=== PATIENT | female | born 1965 | race Two or more races ===

== ENCOUNTER → 2024-09-04 | Outpatient (CLI) | payer MEDICAID, SELFPAY ==
--- NOTE | 2024-09-04 13:25 | XR_ITS ---
Examination: Bilateral hands, 6 views. Technique: AP, Oblique, Lateral each hand total 6 views Date and time of exam: September 04, 2024 1333 hours INDICATIONS: Bilateral hand pain finger pain 4 months FINDINGS: Severe osteopenia No fracture or dislocation involving either hand Diffuse mild to moderate narrowing joints of the wrist and hand No erosive arthritis No cortical bone destruction No foreign bodies IMPRESSION: Diffuse nonerosive mild to moderate narrowing joints of the wrist and hand, especially distal interphalangeal joints second through fifth digits
== END | disposition home or self-care (01) ==
LOC: CDIM 13:16
PROVIDERS: PCP Physician Assistant; Referring Provider Physician Assistant; Visit Provider Physician Assistant
DX: M25.842 Other specified joint disorders, left hand (principal); M25.841 Other specified joint disorders, right hand
CPT/HCPCS: 73130

== ENCOUNTER → 2025-01-12 | Outpatient (CLI) | payer MEDICAID, SELFPAY ==
--- NOTE | 2025-01-12 10:38 | XR_ITS ---
Examination: Thoracic spine 3 views Technique one AP lateral coned lateral upper dorsal spine 3 views Exam date and time: January 12, 2025 1115 hours INDICATIONS: Upper back pain beginning 6 months ago. FINDINGS: Prominent osteopenia No thoracic fracture Mild to moderate diffuse thoracic disc narrowing IMPRESSION: Mild to moderate diffuse thoracic degenerative disc disease
--- NOTE | 2025-01-12 10:38 | XR_ITS ---
Examination: Lumbar spine 3 views Technique one AP lateral coned lateral lower lumbar spine 3 views Exam date and time: 09/13/2025 1122 hours INDICATIONS: Low back pain beginning 6 months ago. FINDINGS: Moderate osteopenia. No lumbar fracture. Mild disc narrowing L5-S1. No spondylolisthesis IMPRESSION: Mild disc narrowing L5-S1
--- NOTE | 2025-01-12 10:38 | XR_ITS ---
Examination: PA lateral chest 2 views TECHNIQUE: Upright PA lateral chest 2 views Exam date and time: January 12, 2025 1107 hours Comparison May 08, 2022 INDICATIONS: Diagnosis pulmonary fibrosis. FINDINGS: Again noted bibasilar pulmonary fibrosis and/or bronchiectasis Normal heart size Normal heart failure Moderate osteopenia IMPRESSION: Stable bibasilar pulmonary fibrosis/bronchiectasis, consider high resolution CT chest without contrast follow-up
== END | disposition home or self-care (01) ==
LOC: CDIM 09:55
PROVIDERS: PCP Physician Assistant; Referring Provider Physician Assistant; Visit Provider Physician Assistant
DX: J84.10 Pulmonary fibrosis, unspecified (principal); M48.07 Spinal stenosis, lumbosacral region; M51.34 Other intervertebral disc degeneration, thoracic region
CPT/HCPCS: 71046; 72070; 72100

== ENCOUNTER 2025-03-30 11:00 | Outpatient (RCR) | payer MEDICAID, SELFPAY ==
--- NOTE | 2025-03-18 11:45 | PTNOTE_ITS ---
PT OP Initial Eval Patient Information Outpatient Physical Therapy Treatment Date: 03/18/25 Visit Reasons: Bilateral hip pain/back pain Medical Diagnosis: Back Pain; Bilateral Hip Pain Treatment Dx #1: Back Pain Treatment Dx #2: Bilateral Hip Pain Start of Care: 03/18/25 Date of Onset: 1 month ago Smoking Status Smoking Status: Never smoker Initial Assessment Subjective: Pt is a 60 y/o female reports of back and bilateral hip pain (8/10) ~ 1 month ago. Pt mentioned after seeing the chiropractor her symptoms worsening. Pt is currently seeing rhuematologist to screen out certain condition. Pt has limitation with standing, walking, chores, bending, lifting, stairs, and performing recreational activities. Objective: L/S AROM: all motions are 50% towards end range with pain Hip PROM: all motions are 50% towards end range with pain Hip MMTs: grossly 3/5 Muscle Length: Hs tightness Assessment: Pt demonstrate back pain with hip mobility deficits leading to difficulty with ADLs. Pt will attempt physical therapy to increase ROM, strength, and work on overall mobility. 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 1) Increase L/S AROM WNL in 6 wks to be able to perform chores 2) Decrease back and hip pain to 4/10 in 6 wks to be able to stand more than 30 mins 3) Increase core strength WFL in 6 wks to be able to perform recreational activities 4) Increase hip MMTs grossly to 4-/5 in 6 wks to be able to walk more than 30 mins 5) Indep with HEP Treatment Plan 1) Manual Therapy 2) Therapeutic Activities 3) Therapeutic Exercises 4) Modalities (ice, heat) 5) Balance Training 6) Gait Training Frequency and Duration: 2 x wk for 6 wks Certification Dates: 03/18/25 to 06/18/25 Procedure Charges OP PT Eval Mod Complex 30 minutes: Yes
--- NOTE | 2025-03-30 12:55 | PT.ODAYNRPT ---
PT Outpatient Daily Note OP Daily Note Outpatient Physical Therapy Treatment Date: 03/30/25 Visit Reasons: Bilateral hip pain/back pain Subjective: Pt c/o back and hip pain. Objective: Please see flow sheet for there x list. Assessment: Pt demonstrates poor tolerance with interventions assigned due to aggravating symptoms. Plan: Continue with pOC. Length of Time (minutes) of Treatment: 30 Minutes Procedure Charges Therapeutic Exercise 30 minutes: Yes
== END 2025-03-30 23:59 | disposition home or self-care (01) ==
LOC: CPTX 11:00
PROVIDERS: PCP Nurse Practitioner; Referring Provider Nurse Practitioner; Visit Provider Nurse Practitioner
DX: M25.552 Pain in left hip (principal); M25.551 Pain in right hip; M54.9 Dorsalgia, unspecified; R26.2 Difficulty in walking, not elsewhere classified
CPT/HCPCS: 97110; 97162

== ENCOUNTER 2025-04-02 10:47 | Outpatient (RCR) | payer MEDICAID, SELFPAY ==
--- NOTE | 2025-04-02 11:47 | PT.ODAYNRPT ---
PT Outpatient Daily Note OP Daily Note Outpatient Physical Therapy Treatment Date: 04/02/25 Visit Reasons: Bilateral hip/back pain Subjective: Pt c/o back pain today. Objective: Please see flow sheet for ther ex list. Assessment: Pt moves slowly and with decrease arm swing during ambulation. Plan: Continue with pOC. Length of Time (minutes) of Treatment: 30 Minutes Procedure Charges Therapeutic Exercise 30 minutes: Yes
== END 2025-04-30 23:59 | disposition home or self-care (01) ==
LOC: CPTX 10:47
PROVIDERS: PCP Nurse Practitioner; Referring Provider Nurse Practitioner; Visit Provider Nurse Practitioner
DX: M54.50 Low back pain, unspecified (principal); M25.552 Pain in left hip; M25.551 Pain in right hip; R26.2 Difficulty in walking, not elsewhere classified
CPT/HCPCS: 97110

== ENCOUNTER → 2025-04-27 | Outpatient (CLI) | payer OTHER, SELFPAY ==
--- NOTE | 2025-04-27 07:00 | XR_ITS ---
MRI shoulder, left, without contrast. Date and time: April 19, 2025 0714 hours INDICATIONS: Lifting injury at work to the shoulder 4 years ago with persistent shoulder pain Technique: Multiple axial, sagittal and coronal sections of the shoulder have been obtained. Siemens high-resolution 1.5 Larisa MRI scanner is utilized. Axial fat-suppressed sections, TR 2350, TE 18 T2-weighted coronal fat-saturated images, TR 3500, TE 7100 T1-weighted coronal images, TR 500, TE 15 T2-weighted sagittal fat-saturated images, TR 3500, TE 57 T1-weighted sagittal sections, TR 504, TE 13. Findings: Supraspinatus tendon insertion is intact. Infraspinatus tendon insertion is intact. Subscapularis insertion is intact. Subscapularis bursa is not seen. Long head of the biceps is in the bicipital groove. No definite tear of the biceps superior labral anchor is seen. Retraction of the musculotendinous junction of the rotator cuff is not seen . Tendinosis pattern is mild. Distance between the acromium and humeral head is 3.4 mm Atrophy of the supraspinatus muscle is severe. Atrophy of the infraspinatus muscle is moderate. Sagittal sections demonstrate a horizontal acromion. Acromioclavicular joint demonstrates mild osteoarthritis . Osacromiale is not identified. Labral margins intact. Bony glenoid fossa on the sagittal sections does not demonstrate osseous defect. Occult fracture or area of avascular necrosis is not seen. Acromioclavicular joint separation is not visible. Defect in the posterolateral margin of the humeral head is not seen Impression: Rotator cuff and labral margins intact. Rotator cuff impingement syndrome, distance between the acromium and humeral head 3.4 mm
--- NOTE | 2025-04-27 07:30 | XR_ITS ---
Examination: MRI left elbow, without contrast Date and time of exam: April 27, 2025, 0756 hours INDICATIONS: Palpable lump medial elbow with weakness for years Technique: Multiple axial sagittal and coronal images of the left elbow have been obtained with the Siemens high-resolution 1.5 Larisa MRI scanner. Images obtained include T2-weighted fat-suppressed sagittal sections, TR 3500, TE 46, T2 weighted coronal fat suppressed images, TR 3050, TE 84, T2-weighted transverse fat suppressed images, TR 3260, TE 63, proton density transverse images, TR 4720 TE 46, and T1 weighted coronal images, TR 560, TE 13. Findings: Distal humerus proximal radius and ulna intact Small elbow effusion Triceps tendon intact Common flexor, and extensor tendons intact No avascular necrosis No occult fracture No soft tissue cystic or solid mass medial elbow at the area of concern No ossified joint bodies IMPRESSION: No occult fracture, bone contusion, marrow edema or avascular necrosis Collateral ligaments appear intact
== END | disposition home or self-care (01) ==
LOC: SMRI 06:56
PROVIDERS: PCP Physician Assistant
DX: S46.012A Strain of muscle(s) and tendon(s) of the rotator cuff of left shoulder, initial encounter (principal); X58.XXXA Exposure to other specified factors, initial encounter; R22.32 Localized swelling, mass and lump, left upper limb
CPT/HCPCS: 73221

== ENCOUNTER → 2025-04-29 | Outpatient (CLI) | payer OTHER, SELFPAY ==
--- NOTE | 2025-04-29 13:00 | XR_ITS ---
Examination: MRI cervical spine without intravenous contrast Date and time of exam: April 29, 2025 1328 hours INDICATIONS: Left-sided neck pain radiating down the left arm for years Technique: Multiple axial and sagittal sections of the cervical spine to been obtained. T2 weighted sagittal sections, TR 3, 270, TE 117 T1-weighted sagittal sections, TR 500, TE 11 T1-weighted axial sections, TR 607, TE 12, axial sections TR 18, TE 27 and T2 weighted transverse sections, TR 3920, TE 122. Findings: Adequate alignment cervical vertebral bodies. No cervical fracture. Intact odontoid. Diffuse cervical disc desiccation. No localized enlargement cervical cord. C2-C3 no disc protrusion C3-C4 no disc protrusion C4-C5 no disc protrusion C5-C6 1 mm central cervical disc bulge C6-C7 no disc protrusion C7-T1 no disc protrusion IMPRESSION: Satisfactory alignment cervical vertebral bodies. No cervical fracture No significant acquired spinal stenosis
== END | disposition home or self-care (01) ==
PROVIDERS: PCP Physician Assistant
DX: M54.10 Radiculopathy, site unspecified (principal); R52 Pain, unspecified
CPT/HCPCS: 72141

== ENCOUNTER → 2025-05-21 | Outpatient (CLI) | payer MEDICAID, SELFPAY ==
--- NOTE | 2025-05-21 16:00 | XR_ITS ---
Examination: CT chest, without intravenous contrast. Sagittal and coronal 2-D reconstructions. Exam date and time: 2024, 1620 hours INDICATIONS: Shortness of breath, diagnosis of pulmonary fibrosis 2 years ago CTDI:vol (mGy) 7.58. DLP: (mGycm) 221 Technique: Multiple 3.0 mm axial sections of the chest to been obtained. Bone and lung density settings are obtained. Sagittal and coronal 2-D reconstructions have been obtained. Low dose protocols were performed. One or more of the following dose reduction techniques were used; automated exposure control, adjustment of the mA and/or KV according to patient size, use of iterative reconstruction technique. Findings: No thoracic aortic aneurysm or dilatation. Pulmonary artery segments are not enlarged. No paratracheal tracheobronchial or bronchopulmonary adenopathy. Moderate to severe bibasilar pulmonary fibrosis 4 mm pulmonary nodule right mid lung image 157 8 mm pulmonary nodule right upper lobe image 164 6 mm pulmonary nodule right lower lobe image 180 Liver mildly irregular in contour Absent gallbladder Spleen not enlarged No pancreatic or adrenal mass Kidneys partially visualized no hydronephrosis. Intact osseous structures IMPRESSION: Moderate to severe bibasilar pulmonary fibrosis Noncalcified pulmonary nodules as above, with this study as baseline recommend continued 6 month follow-up CT chest without contrast
== END | disposition home or self-care (01) ==
PROVIDERS: PCP Physician Assistant; Referring Provider Surgery; Visit Provider Surgery
DX: J84.10 Pulmonary fibrosis, unspecified (principal); R91.8 Other nonspecific abnormal finding of lung field
CPT/HCPCS: 71250

== ENCOUNTER 2025-06-11 07:34 | Emergency (ER) | payer MEDICAID, SELFPAY ==
[2025-06-11 07:35] VITALS: BMI 21.7
[2025-06-11 07:45] VITALS: BP 126/77; PULSE 95; RESP 17; TEMP 36.8; O2SAT 99
--- NOTE | 2025-06-11 07:54 | XR_ITS ---
Examination: CT abdomen with intravenous contrast CT pelvis with intravenous contrast 2-D coronal reconstructions 2-D sagittal reconstructions Date and time of exam:June 11, 2025 1111 hours, comparison July 04, 2023 INDICATIONS: Abdominal pain and severe diarrhea beginning 2 weeks ago. CTDI: vol (mGy) 5.95 DLP: (mGycm) 325 Technique: Multiple axial sections of the abdomen and pelvis have been obtained. 64 slice high-resolution scanner used. 3 mm axial sections have been obtained, post intravenous injection 60 cc [id number] 2-D sagittal, coronal reconstructions obtained. Low dose protocols were performed. One or more of the following dose reduction techniques were used; automated exposure control, adjustment of the mA and/or KV according to patient size, use of iterative reconstruction technique. Findings: Significant pulmonary fibrosis at the lung bases Liver is irregular in contour, no focal liver lesions Absent gallbladder Spleen not enlarged No pancreatic mass No extrahepatic biliary tract dilatation Mild to moderate right renal scarring Aortic calcification no aneurysmal dilatation Normal appendix No bowel obstruction No diverticulitis Anteverted uterus with uterine areas of fibroid degeneration No bowel obstruction Urinary bladder wall thickening up to 6 mm Moderate osteopenia IMPRESSION: Significant pulmonary fibrosis at the lung bases Primary hepatocellular disease Normal appendix No bowel obstruction diverticulitis or nonspecific colitis pattern Urinary bladder wall thickening up to 6 mm, consider cystitis
--- NOTE | 2025-06-11 07:56 | PD.EDRME ---
Rapid Medical Screening Exam E Arrival date/time: 06/11/25 07:34 60-year-old female presents to the Emergency Department today complaints of abdominal pain and diarrhea ongoing x 2 weeks Chief Complaint: Nausea/Vomiting/Diarrhea Vital signs: Vital Signs Temperature 98.2 F 06/11/25 07:45 Pulse Rate 95 06/11/25 07:45 Respiratory Rate 17 06/11/25 07:45 Blood Pressure 126/77 06/11/25 07:45 Pulse Oximetry (%) 99 06/11/25 07:45 Oxygen Delivery Method Room Air 06/11/25 07:45
[2025-06-11 08:34] LABS: Basophils # (Auto) 0.0 Thou/mm3 (0.0-0.2); Basophils % (Auto) 0 % (0-2.5); Eosinophils # (Auto) 0.1 Thou/mm3 (0.0-0.5); Eosinophils % (Auto) 1 % (0-10); Hematocrit 35.5 % (36.0-46.0); Hemoglobin 11.6 g/dL (12.0-16.0); Immature Granulocytes Auto 0.03 Thou/mm3 (0.00-0.00); Lymphocytes # (Auto) 2.0 Thou/mm3 (1.0-4.8); Lymphocytes % (Auto) 23 % (10-50); Mean Corpuscular HGB Conc 32.7 g/dl (31.0-37.0); Mean Corpuscular Hemoglobin 28.6 pg (25.0-35.0); Mean Corpuscular Volume 88 fL (80-100); Monocytes # (Auto) 0.5 Thou/mm3 (0.0-0.8); Monocytes % (Auto) 5 % (0-12); Neutrophils # (Auto) 6.2 Thou/mm3 (1.8-7.7); Neutrophils % (Auto) 71 % (37-80); Nucleated Red Blood Cell # 0.00 Thou/mm3 (0.00-0.00); Nucleated Red Blood Cell % 0 /100 WBC (0); Platelet Count 459 Thou/mm3 (140-440); RDW Standard Deviation 41.8 fL (36.4-46.3); Red Blood Count 4.05 Miln/mm3 (4.00-5.20); White Blood Count 8.8 Thou/mm3 (3.6-11.0)
[2025-06-11 08:35] LABS: Collection Type, Urine Clean Catch; RBC,Urine 0 /hpf (0-3)
[2025-06-11 08:41] LABS: Alanine Aminotransferase 14 U/L (10-49); Albumin, Serum 4.3 gm/dL (3.5-5.0); Albumin/Globulin Ratio 1.2 (1.2-2.2); Alkaline Phosphatase 80 U/L (46-116); Anion Gap 7 (7-16); Aspartate Amino Transferase 28 U/L (0-34); BUN/Creatinine Ratio 14 Ratio (12-20); Bilirubin,Total 0.4 mg/dL (0.3-1.2); Blood Urea Nitrogen 7 mg/dL (9-23); Calcium 9.7 mg/dL (8.3-10.6); Calcium (Corrected) 9.7 mg/dL (8.5-10.1); Carbon Dioxide 28.7 mMol/L (20.0-31.0); Chloride 102 mMol/L (98-107); Creatinine (Component) 0.5 mg/dL (0.6-1.3); Estimated Creatinine Clearance 91.4 mL/min (>60); Free T4 (Free Thyroxine) 1.39 ng/dL (0.89-1.76); Globulin 3.7 gm/dL (2.3-3.5); Glucose 97 mg/dL (74-106); Osmolality,Calculated 273 (275-295); Potassium 4.2 mMol/L (3.4-5.1); Sodium 138 mMol/L (136-145); Thyroid Stimulating Hormone 2.22 uIU/mL (0.55-4.78); Total Protein 8.0 gm/dL (5.7-8.2); eGFR > 60 See Note
[2025-06-11 08:55] LABS: Bacteria,Urine Rare; Bilirubin,Urine Negative (Negative); Blood,Urine Negative (Negative); Clarity,Urine Clear (Clear/Hazy); Color,Urine Lt-Yellow (Lt Yel-Yel); Culture Indicated,Urine Not Indicated; Glucose, Urine Negative (Negative); Ketones,Urine Negative (Negative); Leukocyte Esterase,Urine Positive (Negative); Nitrite,Urine Negative (Negative); PH,Urine 7.5 (5.0-7.0); Protein,Urine Negative (Neg - Trace); Specific Gravity,Urine 1.017 (1.001-1.035); Squamous Epithelial Cell,Urine < 1 /hpf (0-5); Urobilinogen,Urine Negative mg/dL (0.0-1.0); WBC,Urine 7 /hpf (0-5)
--- NOTE | 2025-06-11 08:56 | EKG_ITS ---
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
--- NOTE | 2025-06-11 08:57 | EDNOTE_ITS ---
Nausea/Vomit./Diarrhea-RME/HPI General Chief complaint: Nausea/Vomiting/Diarrhea Stated complaint: DIARRHEA X2 WEEKS, ABD CRAMPING, DEHYDRATED Time Seen by Provider: 06/11/25 07:57 Arrival date/time: 06/11/25 07:34 Limitations: no limitations RME / HPI RME / HPI Narrative: 06/11/25 07:34 60-year-old female presents to the Emergency Department today complaints of abdominal pain and diarrhea ongoing x 2 weeks. Patient states that she has cramping abdominal pain. She states that her diarrhea is nearly clear fluid. There is been no bleeding. No foreign travel. No recent camping. No other family member has been ill. MD complaint: nausea, diarrhea and abdominal pain Onset (ago): week(s) Description of Vomiting: watery Description of Diarrhea: water Associated Abdominal Pain: Yes Location of pain: diffuse Radiation: diffuse Severity: moderate Severity scale (1-10): 8 Quality: cramping Consistency: intermittent Relieving factors: none Exacerbating factors: none Associated symptoms: denies other symptoms Related Data Previous Rx's ?Medication ?Instructions ?Recorded acetaminophen 650 mg 650 mg PO Q8H PRN fever or p ain 10/29/19 tablet,extended release #30 tabs cyclobenzaprine 10 mg tablet 10 mg PO TID PRN muscle s pasm #30 05/12/21 tabs ibuprofen 600 mg tablet 600 mg PO Q8H PRN pain #30 t abs 05/12/21 ciprofloxacin HCl 500 mg tablet 500 mg PO BID #10 tabs 07/04/23 (Cipro) diphenoxylate-atropine 2.5 1 tab PO Q8H PRN diarrhea # 10 tabs 06/11/25 mg-0.025 mg tablet (Lomotil) Allergies Allergy/AdvReac Type Severity Reaction Status Date / Time No Known Allergies Allergy Verified 06/11/25 07:39 Review of Systems Review of Systems Systems Reviewed: All systems reviewed, normal except as documented Past Medical History Past Medical History CARDIAC: Negative Cardiac Disorders or Congestive Heart Failure RESPIRATORY: Negative Chronic Obstructive Pulmonary Disease (COPD) GENITOURINARY: Negative Renal Disease REPRODUCTIVE: Positive Previous Pregnancies ENDOCRINE: Negative Diabetes Mellitus Type 1 or Diabetes Mellitus Type 2 HEMATOLOGIC: Negative Sickle Cell Disease PSYCHO/SOCIAL: Positive Anxiety Family History FAMILY HISTORY: Positive Family Cardiac Disorders Surgical History SURGICAL: Positive Abdominal Surgery, Tubal Ligation and Section (x5) Social History SMOKING STATUS: Never smoker SUBSTANCE USE: does not use ED Exam Narrative Physical exam: Vital signs are stable. General Limitations: Present no limitations General appearance: Present alert and other (mild distress) Head Head exam: Present atraumatic Eye Eye exam: Present normal appearance, PERRL and EOMI ENT ENT exam: Present normal exam, normal oropharynx and mucous membranes moist Neck Neck exam: Present normal inspection, full ROM and trachea midline Chest Chest inspection: Present normal inspection and symmetric chest wall rise Respiratory Respiratory exam: Present normal lung sounds bilaterally Cardiovascular Cardiovascular exam: Present regular rate, normal rhythm and normal heart sounds Abdominal Exam Abdominal exam: Present soft, tenderness and hyperactive bowel sounds Abdominal tenderness: Present diffuse Rectal Exam Rectal exam: Present deferred Extremities Exam Extremities exam: Present normal inspection and full ROM Back Exam Back exam: Present normal inspection and full ROM Neurological Exam Neurological exam: Present alert, oriented X3, CN II-XII intact, normal gait and reflexes normal Psychiatric Psychiatric exam: Present anxious Skin Skin exam: Present warm, dry, intact and normal color Course Quality Measures none Orders Category Date Time Status CT Screening NOW Care 06/11/25 07:55 Active Development Consultant NOW Care 06/11/25 08:56 Active Continuous Pulse Oximetry NOW Care 06/11/25 08:56 Completed EKG (ED ONLY) *Do not use* NOW Care 06/11/25 08:56 Completed Insert IV NOW Care 06/11/25 08:46 Active Insert IV NOW Care 06/11/25 08:[address] abdomen pelvis w con Stat Exams 06/11/25 07:54 Completed EKG (ED Only) Stat Exams 06/11/25 08:56 Draft CBC Stat Lab 06/11/25 08:02 Completed Comprehensive Metabolic Panel Stat Lab 06/11/25 08:02 Completed Free T4 (Free Thyroxine) Stat Lab 06/11/25 08:02 Completed Lipase Stat Lab 06/11/25 08:02 Completed Stool Culture Stat Lab 06/11/25 07:55 Ordered Stool for WBCs Stat Lab 06/11/25 07:55 Ordered TSH [Thyroid Stimulating Hormone] Stat Lab 06/11/25 08:02 Completed UA, C/S IF [Urinalysis, C/S if Indicated] Stat Lab 06/11/25 08:24 Completed c diff [Clostridium Difficile PCR] Stat Lab 06/11/25 Ordered Diphenoxylate/Atrop Sulf [Lomotil] Med 06/11/25 13:21 Discontinued 2 tab PO X1 ONE Sodium Chloride 0.9% 1000 ml [Ns] 1,000 ml Med 06/11/25 08:56 Discontinued IV 999 mls/hr Vital Signs Vital signs: Vital Signs Temperature 98.2 F 06/11/25 07:45 Pulse Rate 95 06/11/25 07:45 Respiratory Rate 17 06/11/25 07:45 Blood Pressure 126/77 06/11/25 07:45 Pulse Oximetry (%) 99 06/11/25 07:45 Oxygen Delivery Method Room Air 06/11/25 07:45 Pulse ox is 99% on room air which is adequate. Nausea/Vomiting/Diarrhea MDM Narrative MDM Narrative:: Argenis Wahl am scribing for and in the presence of Dr. Lucio. The patient attempted to have a bowel movement multiple times while in the ED and was unsuccessful. She has remained stable through ED course. We reviewed all the results, analysis, and treatment plans. Patient is amenable to discharge. Strict return precautions were outlined. Patient was discharged in stable condition. Patient data External records reviewed:: [facility] previous records (I reviewed ED visit on 05/12/2021 ) Clinical information provided by:: patient Social determinants that could affect healthcare access:: none Patient has the following chronic illnesses:: None reported How is presenting disease/condition affected by chronic disease/condition?: no chronic disease Evaluation data The following diagnostics were reviewed and interpreted by me:: lab results, radiology exam(s) and EKG tracing(s) (EKG @ 09:37 AM, NSR, rate 91, no STEMI. ) Lab and/or radiology exams considered but not ordered:: None Interpretation Summary: Ordering Physician: Yvrose LEYVA)Mauri NP Date of Service: 06/11/25 Procedure(s): CT abdomen pelvis w con Accession Number(s): [id number] cc: Curry Gamez; Mauri Frances NP, NP; Clayton Ernandez MD~ Examination: CT abdomen with intravenous contrast CT pelvis with intravenous contrast 2-D coronal reconstructions 2-D sagittal reconstructions Date and time of exam:June 11, 2025 1111 hours, comparison July 04, 2023 INDICATIONS: Abdominal pain and severe diarrhea beginning 2 weeks ago. CTDI: vol (mGy) 5.95 DLP: (mGycm) 325 Technique: Multiple axial sections of the abdomen and pelvis have been obtained. 64 slice high-resolution scanner used. 3 mm axial sections have been obtained, post intravenous injection 60 cc [id number] 2-D sagittal, coronal reconstructions obtained. Low dose protocols were performed. One or more of the following dose reduction techniques were used; automated exposure control, adjustment of the mA and/or KV according to patient size, use of iterative reconstruction technique. Findings: Significant pulmonary fibrosis at the lung bases Liver is irregular in contour, no focal liver lesions Absent gallbladder Spleen not enlarged No pancreatic mass No extrahepatic biliary tract dilatation Mild to moderate right renal scarring Aortic calcification no aneurysmal dilatation Normal appendix No bowel obstruction No diverticulitis Anteverted uterus with uterine areas of fibroid degeneration No bowel obstruction Urinary bladder wall thickening up to 6 mm Moderate osteopenia IMPRESSION: Significant pulmonary fibrosis at the lung bases Primary hepatocellular disease Normal appendix No bowel obstruction diverticulitis or nonspecific colitis pattern Urinary bladder wall thickening up to 6 mm, consider cystitis Dictated By: Clayton Ernandez MD Signed By: <Electronically signed by Clayton Ernandez MD in OV> 06/11/25 1143 Medications / Prescriptions Medications / Prescriptions considered but not ordered:: None Medication administrations:: Medication Administration History Discontinued Medications Diphenoxylate HCl/Atropine (Diphenoxylate/Atrop Sulf 1 Tab) 2 tab PO X1 ONE Stop: 06/11/25 13:22 Last Admin: 06/11/25 13:37 Dose: 2 tab Documented By: SACHA Sodium Chloride (Ns) 1,000 mls @ 999 mls/hr IV .Q1H1M ONE Stop: 06/11/25 09:56 Last Infusion: 06/11/25 10:20 Dose: Infused Documented By: Admin: 06/11/25 09:14 Dose: 999 mls/hr Documented By: SACHA See above Consultations Consultation(s) initiated? (list below): No Diagnosis Nausea Differential Diagnosis: food poisoning, gastroenteritis, drug-induced nausea and vomiting and dehydration Most likely diagnosis given after review of the tests above:: Gastroenteritis Admission Indicated Admission indicated?: not indicated Admission Request Was there a request for admission?: No Disposition Plan Disposition Plan: Discharge Discharge Attestation Discharge Attestation: The patient and all family members were given an opportunity to ask questions and understood the discharge instructions. Discharge instructions specifically effects, indications for sooner follow up or return to the emergency department, and the expected course of current diagnosis. Patient condition: Stable Discharge Plan Plan Patient Disposition: HOME (Self Care) Patient condition on transfer: Stable Prescriptions/Referrals Prescriptions/Med Rec: New diphenoxylate-atropine [Lomotil] 2.5-0.025 mg tablet 1 tab PO Q8H MDD 2 PRN (Reason: diarrhea) Qty: 10 0RF No Action acetaminophen 650 mg tablet extended release 650 mg PO Q8H PRN (Reason: fever or pain) Qty: 30 0RF Rx Instructions: swallow whole; do not crush, chew, break, dissolve, cut, or open cyclobenzaprine 10 mg tablet 10 mg PO TID PRN (Reason: muscle spasm) Qty: 30 0RF ibuprofen 600 mg tablet 600 mg PO Q8H PRN (Reason: pain) Qty: 30 0RF ciprofloxacin HCl [Cipro] 500 mg tablet 500 mg PO BID Qty: 10 0RF Referrals: Curry Haney [Primary Care Provider] - In 1 week Problem List Clinical Impression: Gastroenteritis Patient/Caregiver Discharge Instructions Education Materials: ED Gastroenteritis, Noninfectious Additional Instructions: Follow-up with your primary care doctor in 3 to 5 days for recheck. You can return to the emergency department sooner if symptoms worsen or if you notice any new, concerning issues. Print Language: Malagasy Stand Alone Forms: Ernestine Award Info., Patient Portal Info Letter
[2025-06-11] MEDS: SODIUM CHLORIDE 0.9% 1000 ML 1,000 ML 999 ML IV (09:14)
[2025-06-11 09:16] VITALS: PULSE 96
[2025-06-11 10:26] VITALS: BP 141/76; PULSE 97; RESP 17; TEMP 36.7; O2SAT 97
[2025-06-11 12:50] VITALS: BP 129/72; PULSE 75; RESP 19; TEMP 36.7; O2SAT 97
[2025-06-11] MEDS: DIPHENOXYLATE/ATROP SULF 1 TAB 2 TAB PO (13:37)
[2025-06-11 14:22] VITALS: BP 133/73; PULSE 86; RESP 26; TEMP 36.7; O2SAT 96
[2025-06-11 15:33] VITALS: BP 140/77; PULSE 61; RESP 16; TEMP 36.7; O2SAT 99
== END 2025-06-11 15:50 | disposition home or self-care (01) ==
PROVIDERS: Nurse Practitioner Primary Care; Emergency Provider Family Medicine; PCP Physician Assistant
DX: K52.9 Noninfective gastroenteritis and colitis, unspecified (principal); J84.10 Pulmonary fibrosis, unspecified; K76.9 Liver disease, unspecified; N32.89 Other specified disorders of bladder
CPT/HCPCS: 36415; 74177; 80053; 81001; 83690; 84439; 84443; 85025; 87015; 87045; 87046; 87205; 87493; 87899; 93005; 96360; 99284; A4649; J7030; Q9967; A9270

== ENCOUNTER 2025-06-21 08:09 | Emergency (ER) | payer MEDICAID, SELFPAY ==
[2025-06-21 08:10] VITALS: BMI 23.2
--- NOTE | 2025-06-21 08:13 | EKG_ITS ---
[facility] Test Date: 2025-06-21 Pat Name: NIKKO UMANZOR Department: Room: - Gender: Female [employer]: : 1965 Requested By: ED Temporary Provider Order Number: [id number] Reading MD: ED Temporary Provider Measurements Intervals Enigma Rate: 110 P: 42 [place]: 139 QRS: 17 QRSD: 72 T: 52 QT: 308 QTc: 417 Interpretive Statements SINUS TACHYCARDIA ABNORMAL RHYTHM ECG Compared to ECG 06/11/2025 09:37:17 Sinus rhythm no longer present /store/S0/[id number]/[id number]
[2025-06-21 08:24] VITALS: BP 134/75; PULSE 115; RESP 17; TEMP 37; O2SAT 98
--- NOTE | 2025-06-21 08:29 | XR_ITS ---
Examination: AP chest single view Technique: AP portable semiupright chest single view Date and time: June 21, 2025, 0918 hrs., Comparison January 12, 2025 Indications: Onset chest pain today Findings: Atelectasis versus early pneumonia at the lung bases Normal heart size Ordered osteopenia Impression: Atelectasis versus early pneumonia at the lung bases, clinical correlation advised
--- NOTE | 2025-06-21 08:30 | PD.EDRME ---
Rapid Medical Screening Exam RME Arrival date/time: 06/21/25 08:09 Chief Complaint: Chest Pain Vital signs: Vital Signs Temperature 98.6 F 06/21/25 08:24 Pulse Rate 115 H 06/21/25 08:24 Respiratory Rate 17 06/21/25 08:24 Blood Pressure 134/75 H 06/21/25 08:24 Pulse Oximetry (%) 98 06/21/25 08:24 Oxygen Delivery Method Room Air 06/21/25 08:24 RME Narrative: Mid-sternal chest pain/epigastric pain radiating to back with n/v since 1800 last night. Hx pulmonary fibrosis. No sob or dizziness reported.
[2025-06-21 09:38] LABS: Collection Type, Urine Clean Catch
[2025-06-21 09:48] LABS: Basophils # (Auto) 0.0 Thou/mm3 (0.0-0.2); Basophils % (Auto) 0 % (0-2.5); Eosinophils # (Auto) 0.0 Thou/mm3 (0.0-0.5); Eosinophils % (Auto) 0 % (0-10); Hematocrit 35.8 % (36.0-46.0); Hemoglobin 11.6 g/dL (12.0-16.0); Immature Granulocytes Auto 0.01 Thou/mm3 (0.00-0.00); Lymphocytes # (Auto) 1.1 Thou/mm3 (1.0-4.8); Lymphocytes % (Auto) 13 % (10-50); Mean Corpuscular HGB Conc 32.4 g/dl (31.0-37.0); Mean Corpuscular Hemoglobin 28.6 pg (25.0-35.0); Mean Corpuscular Volume 88 fL (80-100); Monocytes # (Auto) 0.6 Thou/mm3 (0.0-0.8); Monocytes % (Auto) 7 % (0-12); Neutrophils # (Auto) 6.9 Thou/mm3 (1.8-7.7); Neutrophils % (Auto) 80 % (37-80); Nucleated Red Blood Cell # 0.00 Thou/mm3 (0.00-0.00); Nucleated Red Blood Cell % 0 /100 WBC (0); Platelet Count 382 Thou/mm3 (140-440); RDW Standard Deviation 42.4 fL (36.4-46.3); Red Blood Count 4.05 Miln/mm3 (4.00-5.20); White Blood Count 8.6 Thou/mm3 (3.6-11.0)
[2025-06-21 10:00] LABS: Alanine Aminotransferase 18 U/L (10-49); Albumin, Serum 4.5 gm/dL (3.5-5.0); Albumin/Globulin Ratio 1.2 (1.2-2.2); Alkaline Phosphatase 84 U/L (46-116); Amylase 53 U/L (30-118); Anion Gap 9 (7-16); Aspartate Amino Transferase 30 U/L (0-34); BUN/Creatinine Ratio 16 Ratio (12-20); Bilirubin,Total 0.4 mg/dL (0.3-1.2); Blood Urea Nitrogen 8 mg/dL (9-23); Calcium 9.8 mg/dL (8.3-10.6); Calcium (Corrected) 9.8 mg/dL (8.5-10.1); Carbon Dioxide 28.0 mMol/L (20.0-31.0); Chloride 102 mMol/L (98-107); Creatinine (Component) 0.5 mg/dL (0.6-1.3); Estimated Creatinine Clearance 89.5 mL/min (>60); Globulin 3.7 gm/dL (2.3-3.5); Glucose 98 mg/dL (74-106); Osmolality,Calculated 275 (275-295); Potassium 3.9 mMol/L (3.4-5.1); Sodium 139 mMol/L (136-145); Total Protein 8.2 gm/dL (5.7-8.2); Troponin I < 0.020 ng/mL (0.0-0.045); eGFR > 60 See Note
[2025-06-21 10:01] LABS: Bilirubin,Urine Negative (Negative); Blood,Urine Negative (Negative); Clarity,Urine Clear (Clear/Hazy); Color,Urine Lt-Yellow (Lt Yel-Yel); Glucose, Urine Negative (Negative); Ketones,Urine Negative (Negative); Leukocyte Esterase,Urine Negative (Negative); Nitrite,Urine Negative (Negative); PH,Urine 7.0 (5.0-7.0); Protein,Urine Trace (Neg - Trace); RBC,Urine 1 /hpf (0-3); Specific Gravity,Urine 1.020 (1.001-1.035); Squamous Epithelial Cell,Urine 1 /hpf (0-5); Urobilinogen,Urine Negative mg/dL (0.0-1.0); WBC,Urine 6 /hpf (0-5)
[2025-06-21 10:04] LABS: B-Type Natriuretic Peptide 24 pg/mL (0-100)
[2025-06-21 11:05] VITALS: BP 118/57; PULSE 108; RESP 18; TEMP 37; O2SAT 100
--- NOTE | 2025-06-21 11:25 | PD.EDCHEST ---
ED Chest Pain RME/HPI General Chief Complaint: Chest Pain Stated Complaint: CXP WITH N/V AND SOB SINCE 1800 LAST NIGHT Time Seen by Provider: 06/21/25 11:24 Arrival date/time: 06/21/25 08:09 Limitations: no limitations RME / HPI RME / HPI narrative: Mid-sternal chest pain/epigastric pain radiating to back with n/v since 1800 last night. Hx pulmonary fibrosis. No sob or dizziness reported. DR. MARIE MAIN ED EVALUATION: 60-year-old female with past surgical history of cholecystectomy (2018),4 sections, and COVID 4 weeks ago presents to the Emergency Department accompanied by her daughter with complaint of chest pain since yesterday radiating to the back. Pain is worse with coughing and movement. She reports a mild cough, sore throat, and congestion. Denies abdominal pain, dysuria, fever, chills, sick contacts, or recent travel. Last bowel movement was this morning and normal. No past medical history and no daily medications besides vitamin B12. Patient denies any tobacco, alcohol, or substance use. Related Data Previous Rx's ?Medication ?Instructions ?Recorded acetaminophen 650 mg 650 mg PO Q8H PRN fever or pain 10/29/19 tablet,extended release #30 tabs cyclobenzaprine 10 mg tablet 10 mg PO TID PRN muscle spasm #30 05/12/21 tabs ibuprofen 600 mg tablet 600 mg PO Q8H PRN pain #30 tabs 05/12/21 ciprofloxacin HCl 500 mg tablet 500 mg PO BID #10 tabs 07/04/23 (Cipro) diphenoxylate-atropine 2.5 1 tab PO Q8H PRN diarrhea #10 tabs 06/11/25 mg-0.025 mg tablet (Lomotil) amoxicillin 875 mg-potassium 1 tab PO Q12H #10 tabs 06/21/25 clavulanate 125 mg tablet Allergies Allergy/AdvReac Type Severity Reaction Status Date / Time No Known Allergies Allergy Verified 06/21/25 08:13 Review of Systems Review of Systems Systems Reviewed: All systems reviewed, normal except as documented Past Medical History Past Medical History RESPIRATORY: Positive Asthma and Pulmonary Fibrosis GASTROINTESTINAL: Positive Gall Bladder Disease (Removed 2019) REPRODUCTIVE: Positive Previous Pregnancies MUSCULOSKELETAL: Positive Rheumatoid Arthritis and Fibromyalgia PSYCHO/SOCIAL: Positive Anxiety Surgical History SURGICAL: Positive Abdominal Surgery, Tubal Ligation and Section Social History SMOKING STATUS: Never smoker SUBSTANCE USE: does not use ALCOHOL: Never ED Exam General Limitations: Present no limitations General appearance: Present alert and in no apparent distress Head Head exam: Present atraumatic, normocephalic and normal inspection Eye Eye exam: Present normal appearance, PERRL and EOMI ENT ENT exam: Present normal exam, normal oropharynx and mucous membranes moist Neck Neck exam: Present normal inspection, full ROM and trachea midline Chest Chest inspection: Present normal inspection and symmetric chest wall rise Respiratory Respiratory exam: Present normal lung sounds bilaterally Cardiovascular Cardiovascular exam: Present regular rate, normal rhythm and normal heart sounds Abdominal Exam Abdominal exam: Present soft and normal bowel sounds Extremities Exam Extremities exam: Present normal inspection and full ROM Back Exam Back exam: Present normal inspection and full ROM Neurological Exam Neurological exam: Present alert, oriented X3 and CN II-XII intact Psychiatric Psychiatric exam: Present normal affect and normal mood Skin Skin exam: Present warm, dry, intact and normal color Course Quality Measures none Orders Category Date Time Status CT Screening NOW Care 06/21/25 11:36 Active EKG (ED ONLY) *Do not use* NOW Care 06/21/25 08:[address] angio chest Stat Exams 06/21/25 11:35 Completed CXR [XR chest 1V] Stat Exams 06/21/25 08:29 Completed EKG (ED Only) Stat Exams 06/21/25 08:13 Draft Amylase Stat Lab 06/21/25 09:25 Completed BNP [B-Type Natriuretic Peptide] Stat Lab 06/21/25 09:25 Completed Blood Culture (Lab) Stat Lab 06/21/25 12:23 Received CBC Stat Lab 06/21/25 09:25 Completed CMP [Comprehensive Metabolic Panel] Stat Lab 06/21/25 09:25 Completed T4 (Thyroxine) Stat Lab 06/21/25 11:34 Completed TSH [Thyroid Stimulating Hormone] Stat Lab 06/21/25 11:34 Completed Troponin I Stat Lab 06/21/25 09:25 Completed Troponin I Stat Lab 06/21/25 11:34 Completed UA [Urinalysis] Stat Lab 06/21/25 09:23 Completed Acetaminophen Tab [Tylenol Tab] Med 06/21/25 11:43 Discontinued 650 mg PO X1 ONE Azithromycin Po [Zithromax PO] Med 06/21/25 11:34 Discontinued 500 mg PO X1 ONE Ketorolac Inj [Toradol Inj] Med 06/21/25 11:43 Discontinued 15 mg IVP X1 ONE Ringers Lactated 1000 ml [Lactated Ringers] 1,000 ml Med 06/21/25 11:34 Discontinued IV 999 mls/hr cefTRIAXone [Rocephin] Med 06/21/25 11:43 Discontinued 1,000 mg IV X1 ONE cefTRIAXone/D5w 1gm IV premix [Rocephin/D5w 1gm IV Med 06/21/25 12:00 Discontinued premix] 1 gm in 50 ml IV X1 Vital Signs Vital signs: Vital Signs Temperature 98.6 F 06/21/25 08:24 Pulse Rate 115 H 06/21/25 08:24 Respiratory Rate 17 06/21/25 08:24 Blood Pressure 134/75 H 06/21/25 08:24 Pulse Oximetry (%) 98 06/21/25 08:24 Oxygen Delivery Method Room Air 06/21/25 08:24 Chest Pain MDM Narrative MDM Narrative:: I, Madelin Flores, am scribing for and in the presence of Dr. Marie. Patient presents with chest pain. Vital signs and exam as listed. Concern for ACS arrhythmia electrolyte abnormality among others. Prior provider met with patient. Ordered labs chest x-ray EKG. Labs without acute hematologic abnormality. No significant acute electrolyte abnormality. No significant metabolic abnormality, troponin not elevated BNP normal. Urinalysis without evidence of infection. On my reevaluation patient hemodynamically stable not distressed, states that chest pain is better however is worse with taking deep breaths. Patient recently got over COVID. Given the patient is persistently tachycardic, ordered CT angio of the chest to look for pulmonary embolus, also chest x-ray concerning for pneumonia, ordered antibiotics. Also ordered blood cultures. Also ordered fluids and medications for symptom relief. Thyroid studies unremarkable. CT angio of the chest without evidence of pulmonary embolus. Patient does have a lung nodule also has bilateral pneumonia. Antibiotics provided. On reevaluation patient hemodynamically stable no distress tolerating oral intake, breathing room air. Will discharge home close return precautions follow-up with your primary care doctor. Patient data External records reviewed:: [facility] previous records Clinical information provided by:: patient Social determinants that could affect healthcare access:: none Patient has the following chronic illnesses:: No past medical history and no daily medications besides vitamin B12. Past surgical history of cholecystectomy (2019),4 sections. COVID 4 weeks ago How is presenting disease/condition affected by chronic disease/condition?: no chronic disease Evaluation data The following diagnostics were reviewed and interpreted by me:: lab results, radiology exam(s) and EKG tracing(s) Lab and/or radiology exams considered but not ordered:: none Interpretation Summary: My interpretation: EKG performed at 0825 hours, sinus tachycardia, rate 110, normal intervals, non specific T wave changes, no cardiac alert Procedure(s): CT angio chest Accession Number(s): [id number] cc: Curry Gamez; Clayton Ernandez MD; Sharifa Marie MD~ Examination: CTA chest with intravenous contrast 2-D reconstructions 3-D reconstructions, vascular Date and time of exam: June 21, 2025, 1406 hrs. Indications: Onset chest pain shortness of breath today CTDI: vol (mGy) 11.1 DLP: (mGycm) 281 Technique: Multiple axial sections of the thorax have been obtained. 3 mm slice thickness, from below the hemidiaphragms to above the apices of the lungs. Mediastinal and lung density settings have been obtained. 2-D sagittal and coronal reconstructions. 3-D angiographic renderings, 3-D volume renderings, 3D post processing, vascular maximum intensity projections obtained. Contrast administered is 85 cc Isovue-370. Low dose protocols were performed. One or more of the following dose reduction techniques were used; automated exposure control, adjustment of the mA and/or KV according to patient size, use of iterative reconstruction technique. Findings: No thoracic aortic aneurysmal dilatation or dissection No pulmonary artery filling defects No mediastinal lymphadenopathy Bibasilar pneumonia versus pulmonary fibrosis 8mm pulmonary nodule in the right middle lobe No pneumonia or pulmonary edema Absent gallbladder No pancreatic or adrenal mass Moderate osteopenia Impression: Negative for pulmonary artery emboli Bibasilar pneumonia versus pulmonary fibrosis, clinical correlation advised 8mm pulmonary nodule in the right middle lobe, with this study as baseline recommend continued 6 month follow-up CT chest without contrast Dictated By: Clayton Ernandez MD Procedure(s): XR chest 1V Accession Number(s): [id number] cc: Curry Gamez; Clayton Ernandez MD; Vicente Gudino PA-C~ Examination: AP chest single view Technique: AP portable semiupright chest single view Date and time: June 21, 2025, 0918 hrs., Comparison January 12, 2025 Indications: Onset chest pain today Findings: Atelectasis versus early pneumonia at the lung bases Normal heart size Ordered osteopenia Impression: Atelectasis versus early pneumonia at the lung bases, clinical correlation advised Dictated By: Clayton Ernandez MD Medications / Prescriptions Medications or Prescriptions considered but not ordered:: none Medication administrations:: Medication Administration History Discontinued Medications Acetaminophen (Acetaminophen 325 Mg Tablet) 650 mg PO X1 ONE Stop: 06/21/25 11:44 Last Admin: 06/21/25 12:28 Dose: 650 mg Documented By: JAYY Azithromycin (Azithromycin 250 Mg Tablet) 500 mg PO X1 ONE Stop: 06/21/25 11:35 Last Admin: 06/21/25 11:48 Dose: 500 mg Documented By: JAYY Ceftriaxone Sodium (Ceftriaxone Sodium 500 Mg Vial) 1,000 mg IV X1 ONE Stop: 06/21/25 11:44 Last Admin: 06/21/25 14:46 Dose: Not Given Documented By: CS Non-Admin Reason: Discontinued Lactated Ringer's (Lactated Ringers) 1,000 mls @ 999 mls/hr IV .Q1H1M ONE Stop: 06/21/25 12:34 Last Admin: 06/21/25 14:15 Dose: 999 mls/hr Documented By: CS Ceftriaxone Sodium/Dextrose (Rocephin/D5w 1gm Iv Premix) 1 gm in 50 mls @ 100 mls/hr IV X1 ONE Stop: 06/21/25 12:29 Last Admin: 06/21/25 14:15 Dose: 100 mls/hr Documented By: JAYY Ketorolac Tromethamine (Ketorolac Inj 30 Mg/Ml Vial) 15 mg IVP X1 ONE Stop: 06/21/25 11:44 Last Admin: 06/21/25 14:46 Dose: Not Given Documented By: CS Non-Admin Reason: Patient Refused see above Consultations Consultation(s) initiated? (list below): No Diagnosis Chest Pain Differential Diagnosis: other (Pleurisy, costochondritis, and acute coronary syndrome.) Most likely diagnosis given after review of the tests above:: pneumonia Admission Indicated Admission indicated?: not indicated Admission Request Was there a request for admission?: No Disposition Plan Disposition Plan: Discharge Discharge Attestation Discharge Attestation: The patient and all family members were given an opportunity to ask questions and understood the discharge instructions. Discharge instructions specifically effects, indications for sooner follow up or return to the emergency department, and the expected course of current diagnosis. Patient condition: Stable Discharge Plan Plan Patient Disposition: HOME (Self Care) Prescriptions/Referrals Prescriptions/Med Rec: New amoxicillin-pot clavulanate 875-125 mg tablet 1 tab PO Q12H Qty: 10 0RF No Action acetaminophen 650 mg tablet extended release 650 mg PO Q8H PRN (Reason: fever or pain) Qty: 30 0RF Rx Instructions: swallow whole; do not crush, chew, break, dissolve, cut, or open cyclobenzaprine 10 mg tablet 10 mg PO TID PRN (Reason: muscle spasm) Qty: 30 0RF ibuprofen 600 mg tablet 600 mg PO Q8H PRN (Reason: pain) Qty: 30 0RF ciprofloxacin HCl [Cipro] 500 mg tablet 500 mg PO BID Qty: 10 0RF diphenoxylate-atropine [Lomotil] 2.5-0.025 mg tablet 1 tab PO Q8H MDD 2 PRN (Reason: diarrhea) Qty: 10 0RF Referrals: Curry Haney [Primary Care Provider] - In 1 week Problem List Clinical Impression: Pneumonia Patient/Caregiver Discharge Instructions Education Materials: ED Pneumonia (Adult) Additional Instructions: Por favor ahsan samantha antibioticos calista la formula y regresar al departamento de emergencias si tiene empeoramiento de sintomas o nuevos sintomas de preocupacion. Print Language: Romanian Stand Alone Forms: Ernestine Award Info., Patient Portal Info Letter
--- NOTE | 2025-06-21 11:35 | XR_ITS ---
Examination: CTA chest with intravenous contrast 2-D reconstructions 3-D reconstructions, vascular Date and time of exam: June 21, 2025, 1406 hrs. Indications: Onset chest pain shortness of breath today CTDI: vol (mGy) 11.1 DLP: (mGycm) 281 Technique: Multiple axial sections of the thorax have been obtained. 3 mm slice thickness, from below the hemidiaphragms to above the apices of the lungs. Mediastinal and lung density settings have been obtained. 2-D sagittal and coronal reconstructions. 3-D angiographic renderings, 3-D volume renderings, 3D post processing, vascular maximum intensity projections obtained. Contrast administered is 85 cc Isovue-370. Low dose protocols were performed. One or more of the following dose reduction techniques were used; automated exposure control, adjustment of the mA and/or KV according to patient size, use of iterative reconstruction technique. Findings: No thoracic aortic aneurysmal dilatation or dissection No pulmonary artery filling defects No mediastinal lymphadenopathy Bibasilar pneumonia versus pulmonary fibrosis 8mm pulmonary nodule in the right middle lobe No pneumonia or pulmonary edema Absent gallbladder No pancreatic or adrenal mass Moderate osteopenia Impression: Negative for pulmonary artery emboli Bibasilar pneumonia versus pulmonary fibrosis, clinical correlation advised 8mm pulmonary nodule in the right middle lobe, with this study as baseline recommend continued 6 month follow-up CT chest without contrast
[2025-06-21] MEDS: AZITHROMYCIN 250 MG TABLET 500 MG PO (11:48)
[2025-06-21] MEDS: ACETAMINOPHEN 325 MG TABLET 650 MG PO (12:28)
[2025-06-21 13:01] LABS: Thyroid Stimulating Hormone 1.00 uIU/mL (0.55-4.78); Troponin I < 0.020 ng/mL (0.0-0.045)
[2025-06-21 13:02] LABS: T4 (Thyroxine) 9.9 mcg/dL (4.5-10.9)
[2025-06-21 13:50] VITALS: BP 133/88; PULSE 108; RESP 17; TEMP 36.9; O2SAT 98
[2025-06-21] MEDS: cefTRIAXone/D5w 1gm IV premix 1 GM/50 ML BAG IV (14:15)
[2025-06-21] MEDS: RINGERS LACTATED 1000 ML 1,000 ML 999 ML IV (14:15)
[2025-06-21 15:46] VITALS: BP 111/62; PULSE 77; RESP 16; O2SAT 99
== END 2025-06-21 15:49 | disposition home or self-care (01) ==
PROVIDERS: Physician Assistant; Emergency Provider Emergency Medicine; PCP Physician Assistant
DX: J18.9 Pneumonia, unspecified organism (principal); R91.1 Solitary pulmonary nodule; R00.0 Tachycardia, unspecified
CPT/HCPCS: 36415; 71045; 71275; 80053; 81001; 82150; 83880; 84436; 84443; 84484; 85025; 87040; 87400; 87811; 93005; 96365; 99284; A4649; J0696; J7120; Q9967; A9270

== ENCOUNTER 2025-06-22 19:29 | Emergency (ER) | payer MEDICAID, SELFPAY ==
--- NOTE | 2025-06-22 19:32 | EKG_ITS ---
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
[2025-06-22 20:35] VITALS: BP 104/57; PULSE 106; RESP 16; TEMP 36.8; O2SAT 99
--- NOTE | 2025-06-22 20:37 | PD.EDRME ---
Rapid Medical Screening Exam RME Arrival date/time: 06/22/25 19:29 This is a case of 60-year-old female who came in in the emergency room due to chest pain shortness of breath and palpitation patient was seen here in the emergency room and was diagnosed to have pneumonia he was advised if the symptoms worsen and his heart rate is high return to the emergency room immediately this patient was here for further evaluation and treatment Chief Complaint: General Adult/Misc Complain Time Seen by Provider: 06/22/25 19:54 Vital signs: Vital Signs Temperature 98.3 F 06/22/25 20:35 Pulse Rate 106 H 06/22/25 20:35 Respiratory Rate 16 06/22/25 20:35 Blood Pressure 104/57 L 06/22/25 20:35 Pulse Oximetry (%) 99 06/22/25 20:35 Oxygen Delivery Method Room Air 06/22/25 20:35
[2025-06-22 21:38] LABS: B-Type Natriuretic Peptide < 20 pg/mL (0-100); Troponin I < 0.020 ng/mL (0.0-0.045)
[2025-06-22 21:58] LABS: D-Dimer 447 ng/mL (<600)
[2025-06-22 22:49] VITALS: BP 141/79; PULSE 105; RESP 20; TEMP 36.9; O2SAT 96
--- NOTE | 2025-06-22 22:54 | XR_ITS ---
Examination: AP chest single view Technique one AP portable upright chest single view Date and time: June 22, 2025 1122 hrs., Comparison 06/21/2025 Indications: Chest pain shortness of breath beginning today. Findings: Bibasilar atelectasis versus early pneumonia, clinical correlation advised Normal heart size No pulmonary edema. Moderate osteopenia Impression: Bibasilar atelectasis versus early pneumonia, clinical correlation advised
--- NOTE | 2025-06-22 23:01 | EDNOTE_ITS ---
ED Arrhythmia Palp. RME/HPI General Chief Complaint: General Adult/Misc Complain Stated Complaint: HIGH HR, CHEST AREA PAIN Time Seen by Provider: 06/22/25 19:54 Arrival date/time: 06/22/25 19:29 RME / HPI RME / HPI narrative: 06/22/25 19:29 This is a case of 60-year-old female who came in in the emergency room due to chest pain shortness of breath and palpitation patient was seen here in the emergency room and was diagnosed to have pneumonia he was advised if the symptoms worsen and his heart rate is high return to the emergency room immediately this patient was here for further evaluation and treatment DR. BYERS MAIN ED EVALUATION: 60 y/o female with Hx of HTN, Anxiety, Asthma, and recent Hx of Bibasillar PNA presents to ED c/o palpitations x 1 day. Denies chest pain. Also denies Hx of smoking. Patient tested negative for COVID-19, Influenza A&B yesterday in ED after testing positive for COVID-19 approximately 2 weeks ago. Related Data Previous Rx's ?Medication ?Instructions ?Recorded acetaminophen 650 mg 650 mg PO Q8H PRN fever or p ain 10/29/19 tablet,extended release #30 tabs cyclobenzaprine 10 mg tablet 10 mg PO TID PRN muscle s pasm #30 05/12/21 tabs ibuprofen 600 mg tablet 600 mg PO Q8H PRN pain #30 t abs 05/12/21 ciprofloxacin HCl 500 mg tablet 500 mg PO BID #10 tabs 07/04/23 (Cipro) diphenoxylate-atropine 2.5 1 tab PO Q8H PRN diarrhea # 10 tabs 06/11/25 mg-0.025 mg tablet (Lomotil) amoxicillin 875 mg-potassium 1 tab PO Q12H #10 tabs clavulanate 125 mg tablet Allergies Allergy/AdvReac Type Severity Reaction Status Date / Time No Known Allergies Allergy Verified 06/22/25 19:30 Review of Systems Review of Systems Systems Reviewed: All systems reviewed, normal except as documented Past Medical History Past Medical History CARDIAC: Positive Hypertension RESPIRATORY: Positive Asthma (Pulmonary fibrosis (usues nebulizer every couple of days)) and Pulmonary Fibrosis GASTROINTESTINAL: Positive Gall Bladder Disease REPRODUCTIVE: Positive Previous Pregnancies MUSCULOSKELETAL: Positive Rheumatoid Arthritis and Fibromyalgia PSYCHO/SOCIAL: Positive Anxiety Surgical History SURGICAL: Positive Abdominal Surgery, Tubal Ligation and Section ED Exam Narrative Physical exam: Generally patient is alert in no obvious distress, heart mildly tachycardic at a rate of 102 without murmur, lungs clear to auscultation equal bilaterally, abdomen soft bowel sounds present nondistended nontender, skin is cool pale and dry, neurologic exam Faraz Coma Scale of 15 without focal motor deficit Course Course Course Narrative: CXR was ordered for determining the etiology of shortness of breath. Quality Measures none Orders Category Date Time Status EKG (ED ONLY) *Do not use* NOW Care 06/22/25 19:32 Completed EKG (ED Only) Stat Exams 06/22/25 19:32 Draft XR chest 1V portable Stat Exams 06/22/25 22:54 Ordered BNP [B-Type Natriuretic Peptide] Stat Lab 06/22/25 20:51 Completed D-Dimer Stat Lab 06/22/25 20:51 Completed Troponin I Stat Lab 06/22/25 20:51 Completed Vital Signs Vital signs: Vital Signs Temperature 98.3 F 06/22/25 20:35 Pulse Rate 106 H 06/22/25 20:35 Respiratory Rate 16 06/22/25 20:35 Blood Pressure 104/57 L 06/22/25 20:35 Pulse Oximetry (%) 99 06/22/25 20:35 Oxygen Delivery Method Room Air 06/22/25 20:35 Arrhythmia/Palpitations MDM Narrative MDM Narrative:: Scribe Attestation: IVonda am scribing for and in the presence of Dr. Byers. Provider Notation: Although this document has been carefully reviewed, there may still be some phonetic and other typographical errors. These errors are purely grammatical due to imperfections in the software program and should not be construed in any way to compromise the substance of the patient's medical care during this visit. I interpreted all labs. I reviewed the workup and laboratory as well as radiographic results yesterday. Patient has CT scan of the chest with IV contrast that showed no pulmonary embolism. No effusion. Patient did have the possibility of bibasilar infiltrate versus pulmonary fibrosis. Patient does have a known history of pulmonary fibrosis. Patient was started on Augmentin and discharged. She got tachycardic today with palpitations and that is the reason why she came back. Tomorrow she has an appointment with her facilities and grounds director. Chest x-ray done tonight shows no worsening of the bibasilar atelectasis versus fibrosis versus infiltrate. Vital signs are stable other than mild tachycardia. CAT scan of the chest with IV contrast done yesterday s howed no PE. Troponin and BNP tonight are not elevated. EKG is nonischemic. Patient be discharged in stable condition to continue current antibiotic and keep her follow-up appointment with her facilities and grounds director in [place] tomorrow. Patient data External records reviewed:: [facility] previous records (Reviewed prior ED records from 06/21/25. Patient was seen for Pneumonia.) Clinical information provided by:: patient Social determinants that could affect healthcare access:: none Patient has the following chronic illnesses:: Hypertension, Asthma, Pulmonary Fibrosis, Gall Bladder Disease, Rheumatoid Arthritis, Fibromyalgia, Anxiety How is presenting disease/condition affected by chronic disease/condition?: exacerbated by Evaluation data The following diagnostics were reviewed and interpreted by me:: lab results, radiology exam(s) and EKG tracing(s) Lab and/or radiology exams considered but not ordered:: None Interpretation Summary: RADIOLOGY Chest X-Ray: Pending official radiology report. Medications / Prescriptions Medications or Prescriptions considered but not ordered:: None Medication administrations:: See above if any Consultations Consultation(s) initiated? (list below): No Diagnosis Differential diagnosis arrhythmia/palpitations: palpitations, anxiety, sinus tachycardia, artial fibrillation, artial flutter, ventricular premature beats, supraventricular tachycardia and ventricular tachycardia Most likely diagnosis given after review of the tests above:: none Admission Indicated Admission indicated?: not indicated Explain why admission is indicated or not indicated:: Patient does not meet admission criteria Admission Request Was there a request for admission?: No Disposition Plan Disposition Plan: Discharge Discharge Attestation Discharge Attestation: The patient and all family members were given an opportunity to ask questions and understood the discharge instructions. Discharge instructions specifically effects, indications for sooner follow up or return to the emergency department, and the expected course of current diagnosis. Patient condition: Stable Discharge Plan Plan Patient Disposition: HOME (Self Care) Prescriptions/Referrals Prescriptions/Med Rec: No Action acetaminophen 650 mg tablet extended release 650 mg PO Q8H PRN (Reason: fever or pain) Qty: 30 0RF Rx Instructions: swallow whole; do not crush, chew, break, dissolve, cut, or open cyclobenzaprine 10 mg tablet 10 mg PO TID PRN (Reason: muscle spasm) Qty: 30 0RF ibuprofen 600 mg tablet 600 mg PO Q8H PRN (Reason: pain) Qty: 30 0RF amoxicillin-pot clavulanate 875-125 mg tablet 1 tab PO Q12H Qty: 10 0RF ciprofloxacin HCl [Cipro] 500 mg tablet 500 mg PO BID Qty: 10 0RF diphenoxylate-atropine [Lomotil] 2.5-0.025 mg tablet 1 tab PO Q8H MDD 2 PRN (Reason: diarrhea) Qty: 10 0RF Referrals: Curry Haney [Primary Care Provider] - In 1 week Problem List Clinical Impression: Heart palpitations, Pulmonary fibrosis Patient/Caregiver Discharge Instructions Additional Instructions: Continue current medications including the antibiotic. Keep your follow-up appointment with the facilities and grounds director on Sunday, June 23. Print Language: Argentine Stand Alone Forms: Ernestine Award Info., Patient Portal Info Letter
[2025-06-22 23:54] VITALS: BP 125/63; PULSE 101; RESP 20; TEMP 36.8; O2SAT 99
== END 2025-06-22 23:56 | disposition home or self-care (01) ==
PROVIDERS: Nurse Practitioner Family; Emergency Provider Emergency Medicine; PCP Physician Assistant
DX: J84.10 Pulmonary fibrosis, unspecified (principal); R00.0 Tachycardia, unspecified; I10 Essential (primary) hypertension; F41.9 Anxiety disorder, unspecified; J45.909 Unspecified asthma, uncomplicated; M06.9 Rheumatoid arthritis, unspecified; M79.7 Fibromyalgia; Z87.01 Personal history of pneumonia (recurrent); Z86.16 Personal history of COVID-19
CPT/HCPCS: 36415; 71045; 83880; 84484; 85379; 93005; 99283

== ENCOUNTER → 2025-08-03 | Outpatient (CLI) | payer MEDICAID, SELFPAY ==
--- NOTE | 2025-08-03 09:30 | XR_ITS ---
Examination: Screening digital mammography, bilateral Computer aided detection 3-D breast Tomosynthesis, bilateral Date and time of exam: 08/03/2025, 10:00 a.m. Comparisons: 06/20/2024 Indications: Screening Technique: Nonmagnified MLO, CC views of the breasts to been obtained, reconstructed from 3-D Tomosynthesis images. R2 computer aided detection program utilized for evaluation of suspicious masses and/or abnormal calcifications. 3-D Tomosynthesis images obtained. Technologist: Findings: There are scattered areas of fibroglandular density. No evidence of abnormal masses or suspicious calcifications. Impression: BI-RADS category 1: Negative findings (within normal) Recommend 1 year follow-up mammogram
== END | disposition home or self-care (01) ==
PROVIDERS: PCP Family Medicine; Referring Provider Physician Assistant; Visit Provider Physician Assistant
DX: Z12.31 Encounter for screening mammogram for malignant neoplasm of breast (principal); R92.313 Mammographic fatty tissue density, bilateral breasts
CPT/HCPCS: 77063; 77067